=== PATIENT | male | born 1965 | race Two or more races ===

== ENCOUNTER 2023-03-18 21:09 | Emergency (ER) | payer MEDICAID ==
[~2023-03-18] VITALS: Ht 172.7 cm; Wt 113.0 kg
[~2023-03-18 21:09] MED LIST: ASPI-543 PO; BENA-19 PO; CAR3125T PO; GLIP5TAB12 PO; METF-370 PO; NAP500T PO
[2023-03-18] MEDS ORDERED: NAP500T PO (23:40)
[2023-03-18] MEDS ORDERED: GLIP5TAB12 PO (23:40)
[2023-03-18] MEDS ORDERED: METF-372 PO (23:40)
[2023-03-18] MEDS ORDERED: GABA800T97 PO (23:40)
[2023-03-18] MEDS ORDERED: KETOROLAC TROMETH 60MG/2ML VIAL IM ONE (23:45)
[2023-03-19] MEDS ORDERED: KETOROLAC TROMETH 60MG/2ML VIAL IM ONE (00:30)
[2023-03-19 01:00] VITALS: BP 140/82; PULSE 76; RESP 18; TEMP 98; O2SAT 98
== END 2023-03-19 01:00 | disposition home or self-care (01) ==
LOC: ER 21:10
DX: E11.65 Type 2 diabetes mellitus with hyperglycemia (principal); G62.9 Polyneuropathy, unspecified; I10 Essential (primary) hypertension; Z90.49 Acquired absence of other specified parts of digestive tract; Z76.0 Encounter for issue of repeat prescription; Z88.6 Allergy status to analgesic agent
CPT/HCPCS: 96372; 99283; J1885

== ENCOUNTER 2023-03-31 18:23 | Emergency (ER) | payer MEDICAID ==
[~2023-03-31] VITALS: Ht 172.7 cm; Wt 106.3 kg
[~2023-03-31 18:23] MED LIST changes: +GABA800T97 PO; +METF-372 PO
[2023-03-31] MEDS ORDERED: HYDR-4798 PO (18:46)
[2023-03-31] MEDS ORDERED: KETOROLAC TROMETH 60MG/2ML VIAL IM ONE (19:15)
[2023-03-31 19:18] VITALS: BP 140/84; PULSE 73; RESP 20; TEMP 98.2; O2SAT 98
== END 2023-03-31 19:24 | disposition home or self-care (01) ==
LOC: ER 18:25
DX: G89.29 Other chronic pain (principal); M54.59 Other low back pain; M54.32 Sciatica, left side; M54.31 Sciatica, right side; E11.9 Type 2 diabetes mellitus without complications; I10 Essential (primary) hypertension; Z76.0 Encounter for issue of repeat prescription; Z88.5 Allergy status to narcotic agent; Z79.899 Other long term (current) drug therapy; Z90.49 Acquired absence of other specified parts of digestive tract
CPT/HCPCS: 82962; 96372; 99283; J1885

== ENCOUNTER 2023-04-07 16:22 | Emergency (ER) | payer MEDICAID ==
[~2023-04-07] VITALS: Ht 172.7 cm; Wt 105.0 kg
[~2023-04-07 16:22] MED LIST changes: +HYDR-4798 PO
[2023-04-07] MEDS ORDERED: HYDROcodone-ACET 5/325MG TAB PO ONE (19:15)
[2023-04-07] MEDS ORDERED: KETOROLAC TROMETH 60MG/2ML VIAL IM ONE (19:15)
[2023-04-07] MEDS ORDERED: HYDR-4902 PO (19:23)
[2023-04-07] MEDS ORDERED: BACL10TA PO (19:23)
[2023-04-07 21:04] VITALS: BP 146/78; PULSE 71; RESP 18; TEMP 98.2; O2SAT 99
== END 2023-04-07 21:06 | disposition home or self-care (01) ==
LOC: ER 16:22
DX: G89.29 Other chronic pain (principal); M54.42 Lumbago with sciatica, left side; M54.41 Lumbago with sciatica, right side; E11.9 Type 2 diabetes mellitus without complications; I10 Essential (primary) hypertension; Z76.0 Encounter for issue of repeat prescription; Z88.5 Allergy status to narcotic agent; Z79.84 Long term (current) use of oral hypoglycemic drugs; Z79.899 Other long term (current) drug therapy; Z79.82 Long term (current) use of aspirin
CPT/HCPCS: 96372; 99283; J1885

== ENCOUNTER 2023-04-13 22:08 | Emergency (ER) | payer MEDICAID ==
[~2023-04-13] VITALS: Ht 172.7 cm; Wt 105.0 kg
[~2023-04-13 22:08] MED LIST changes: +BACL10TA PO; +HYDR-4902 PO
[2023-04-13 23:23] VITALS: BP 125/92; PULSE 77; RESP 18; TEMP 98.7; O2SAT 98
[2023-04-13] MEDS ORDERED: ONDANSETRON ODT 4 MG TAB PO ONE (23:30)
[2023-04-13] MEDS ORDERED: HYDROcodone-ACET 10/325MG TAB PO ONE (23:30)
[2023-04-13] MEDS ORDERED: KETOROLAC TROMETH 30 MG/ML 1ML VIAL IM ONE (23:30)
== END 2023-04-13 23:23 | disposition home or self-care (01) ==
LOC: ER 22:08
DX: G62.9 Polyneuropathy, unspecified (principal); I10 Essential (primary) hypertension; E11.9 Type 2 diabetes mellitus without complications; Z90.49 Acquired absence of other specified parts of digestive tract; Z79.82 Long term (current) use of aspirin; Z79.899 Other long term (current) drug therapy; Z88.5 Allergy status to narcotic agent
CPT/HCPCS: 96372; 99283; J1885; Q0162

== ENCOUNTER 2023-04-16 13:02 | Emergency (ER) | payer MEDICAID ==
[~2023-04-16] VITALS: Ht 172.7 cm; Wt 113.6 kg
[2023-04-16 14:39] VITALS: BP 148/77; PULSE 99; RESP 18; TEMP 98.4; O2SAT 96
[2023-04-16] MEDS ORDERED: KETOROLAC TROMETH 30 MG/ML 1ML VIAL IM ONE (15:45)
== END 2023-04-16 15:59 | disposition home or self-care (01) ==
LOC: ER 13:02
DX: E11.40 Type 2 diabetes mellitus with diabetic neuropathy, unspecified (principal); I10 Essential (primary) hypertension; E11.9 Type 2 diabetes mellitus without complications; Z76.0 Encounter for issue of repeat prescription; Z88.6 Allergy status to analgesic agent; Z90.49 Acquired absence of other specified parts of digestive tract
CPT/HCPCS: 96372; 99283; J1885

== ENCOUNTER 2023-06-12 09:04 | Emergency (ER) | payer MEDICAID ==
[~2023-06-12] VITALS: Ht 172.7 cm; Wt 108.1 kg
[2023-06-12] MEDS ORDERED: GABA-339 PO (09:11)
[2023-06-12 09:12] VITALS: BP 142/103; PULSE 111; RESP 17; TEMP 97.8; O2SAT 100
== END 2023-06-12 09:40 | disposition home or self-care (01) ==
LOC: ER 09:04
DX: G62.9 Polyneuropathy, unspecified (principal); E66.9 Obesity, unspecified; R25.2 Cramp and spasm; E11.9 Type 2 diabetes mellitus without complications; E78.5 Hyperlipidemia, unspecified; I10 Essential (primary) hypertension; Z76.0 Encounter for issue of repeat prescription; Z90.49 Acquired absence of other specified parts of digestive tract; Z88.5 Allergy status to narcotic agent

== ENCOUNTER 2023-06-27 10:04 | Emergency (ER) | payer MEDICAID ==
[~2023-06-27] VITALS: Ht 172.7 cm; Wt 108.2 kg
[~2023-06-27 10:04] MED LIST changes: +GABA-339 PO
[2023-06-27 10:41] VITALS: BP 147/95; PULSE 96; RESP 16; O2SAT 98
[2023-06-27] MEDS ORDERED: KETOROLAC TROMETH 60MG/2ML VIAL IM ONE (11:30)
[2023-06-27 12:08] LABS: Urine Bacteria NONE SEEN /hpf (None Seen); Urine Blood Negative /uL (Negative); Urine Clarity Clear (Clear); Urine Color Yellow (Yellow); Urine Protein, UAD Negative (Negative); Urine Specific Gravity 1.018 (1.001-1.035); Urine Urobilinogen Normal (Negative); Urine WBC 1 /hpf (0 - 3)
[2023-06-27] MEDS ORDERED: NAPR-746 PO (12:23)
[2023-06-27] MEDS ORDERED: GABA-339 PO (12:23)
[2023-06-27] MEDS ORDERED: LEVO500T91 PO (12:23)
[2023-06-27] MEDS ORDERED: METF-372 PO (12:23)
== END 2023-06-27 12:30 | disposition home or self-care (01) ==
LOC: ER 10:04
DX: S29.012A Strain of muscle and tendon of back wall of thorax, initial encounter (principal); J12.9 Viral pneumonia, unspecified; E11.9 Type 2 diabetes mellitus without complications; E78.5 Hyperlipidemia, unspecified; I10 Essential (primary) hypertension; Z90.49 Acquired absence of other specified parts of digestive tract; Z76.0 Encounter for issue of repeat prescription; Z88.4 Allergy status to anesthetic agent; X58.XXXA Exposure to other specified factors, initial encounter; Y93.89 Activity, other specified; Y92.89 Other specified places as the place of occurrence of the external cause; Y99.8 Other external cause status
CPT/HCPCS: 71045; 81001; 96372; 99284; J1885

== ENCOUNTER 2023-07-14 10:24 | Emergency (ER) | payer MEDICAID ==
[~2023-07-14] VITALS: Ht 172.7 cm; Wt 112.3 kg
[~2023-07-14 10:24] MED LIST changes: +LEVO500T91 PO; +NAPR-746 PO
[2023-07-14 10:34] VITALS: BP 146/89; PULSE 64; RESP 18; TEMP 97.7; O2SAT 97
[2023-07-14] MEDS ORDERED: ACET-1080 PO ×2 (11:03)
[2023-07-14] MEDS ORDERED: AUG875T PO (11:03)
[2023-07-14] MEDS ORDERED: GABA-339 PO (11:37)
== END 2023-07-14 11:16 | disposition home or self-care (01) ==
LOC: ER 10:24
DX: H65.93 Unspecified nonsuppurative otitis media, bilateral (principal); I10 Essential (primary) hypertension; E11.9 Type 2 diabetes mellitus without complications; E78.5 Hyperlipidemia, unspecified; Z90.49 Acquired absence of other specified parts of digestive tract; Z79.2 Long term (current) use of antibiotics; Z79.82 Long term (current) use of aspirin; Z79.899 Other long term (current) drug therapy; Z88.5 Allergy status to narcotic agent

== ENCOUNTER 2025-01-19 21:58 | Emergency (ER) | payer MEDICAID, OTHER ==
[~2025-01-19] VITALS: Ht 172.7 cm; Wt 110.3 kg
[~2025-01-19 21:58] MED LIST changes: +AUG875T PO; -BENA-19 PO; +BENA10TA90 PO; +BENA10TA93 PO; +CIPR1SUS8 OT; -GLIP5TAB12 PO; +GLIP5TAB21 PO
[2025-01-19] MEDS ORDERED: BENA10TA90 PO (23:13)
[2025-01-19] MEDS ORDERED: GABA-339 PO (23:13)
[2025-01-19] MEDS ORDERED: METF-929 PO (23:13)
[2025-01-19] MEDS ORDERED: NAP500T PO (23:13)
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
[2025-01-19] MEDS: GABAPENTIN 300 MG CAP PO ONE (23:47)
[2025-01-19] MEDS: BENAZEPRIL HCL 10 MG TAB PO ONE (23:48)
[2025-01-19] MEDS: NAPROXEN 500 MG TAB PO ONE (23:48)
[2025-01-19] MEDS: metFORMIN HYDROCHLORIDE 500 MG TAB PO ONE (23:49)
[2025-01-19 23:50] VITALS: BP 143/82; PULSE 64; RESP 20; TEMP 97.9; O2SAT 98
== END 2025-01-20 00:04 | disposition home or self-care (01) ==
LOC: ER 22:03
DX: M79.10 Myalgia, unspecified site (principal); I10 Essential (primary) hypertension; E11.51 Type 2 diabetes mellitus with diabetic peripheral angiopathy without gangrene; E78.5 Hyperlipidemia, unspecified; Z76.0 Encounter for issue of repeat prescription; Z90.49 Acquired absence of other specified parts of digestive tract; Z88.5 Allergy status to narcotic agent; Z79.899 Other long term (current) drug therapy; Z79.84 Long term (current) use of oral hypoglycemic drugs; Z79.82 Long term (current) use of aspirin
CPT/HCPCS: 82947; 82962